=== PATIENT | male | born 1960 | race Caucasian/White ===

== ENCOUNTER 2016-05-10 19:58 | Emergency (ER) | payer OTHER ==
[~2016-05-10] VITALS: Ht 165.1 cm; Wt 97.5 kg
[~2016-05-10 19:58] MED LIST: CIPR500T4 PO; D-ME473S2 PO; DIPH1TAB PO; GABA300C16 PO; HYDR-902 PO; HYDR12.58 PO; LOSA50TA6 PO; METR500T PO; MONT10TA24 PO; PANT40TA4 PO; PRAV40TA76 PO; SYMB80120 INHALATION; VALS80TA2 PO
[2016-05-10 20:11] VITALS: Ht 165.1 cm; Wt 97.5 kg
--- NOTE | 2016-05-10 20:43 | ERD ---
ER Documentation Chief Complaint Date/Time DATE: 05/10/16 TIME: 20:41 Chief Complaint bilat eye redness and pain x 2 days HPI 55-year-old male presents here in emergency department for complaint of bilateral eye redness for 2 days, itching in both eyes. Patient is legally blind. Patient is unable to see in both eyes. Patient denies any foreign body sensation. Patient is complaining of itching in both eyes, burning pain, 4/10 scale. Patient also has been having cough for 1 week, runny nose nasal congestion. Patient does not cough up any phlegm or blood. Patient does not have any shortness breath or wheezing. ROS All systems reviewed and are negative except as per history of present illness. Medications Home Meds Active Scripts Diphenoxylate HCl/Atropine (Lomotil 2.5-0.025 mg Tablet) 1 Each Tablet, 1 TAB PO QID Y for DIARRHEA, #10 TAB Prov:REFUGIO SAAVEDRA. DO 01/26/16 Hydrocodone/Acetaminophen ([place] 10-325 Tablet) 1 Each Tablet, 1 TAB PO Q6H Y for PAIN, #20 TAB Prov:REFUGIO SAAVEDRA A. DO 01/26/16 Ciprofloxacin Hcl* (Ciprofloxacin Hcl*) 500 Mg Tablet, 500 MG PO BID for 10 Days , TAB Prov:JESSICA SAAVEDRASTDOMENICOS A. DO 01/26/16 Metronidazole* (Flagyl*) 500 Mg Tablet, 500 MG PO TID for 10 Days, TAB Prov:ZAIN SAAVEDRAS Jerry. DO 01/26/16 Reported Medications Budesonide-Formoterol Fumarate* (Symbicort*) 80-4.5 Inha, 2 PUFFS INHALATION BID , #1 EACH 01/26/16 Dextromethorphan Hb-Promethazine Hcl* (Promethazine DM* Syrup) 473 Ml Syrup, 5 ML PO Q6 Y for COUGH, ML 01/26/16 Montelukast Sodium* (Montelukast Sodium*) 10 Mg Tablet, 10 MG PO QHS, #30 TAB 01/26/16 Hydrochlorothiazide* (Hydrochlorothiazide*) 12.5 Mg Tablet, 12.5 MG PO DAILY, # 30 TAB 01/26/16 Losartan Potassium* (Losartan Potassium*) 50 Mg Tablet, 50 MG PO DAILY, TAB 01/26/16 Gabapentin* (Gabapentin*) 300 Mg Capsule, 300 MG PO DAILY, #60 CAP 01/26/16 Pravastatin Sodium* (Pravastatin Sodium*) 40 Mg Tablet, 40 MG PO HS, TAB 01/26/16 Pantoprazole* (Pantoprazole*) 40 Mg Tablet.dr, 40 MG PO DAILY, TAB 07/22/15 Valsartan* (Diovan*) 80 Mg Tablet, 80 MG PO DAILY 07/15/09 Allergies Allergies: Coded Allergies: Penicillins (Verified Allergy, Severe, 01/26/16) PMhx/Soc History of Surgery: Yes (CHOLECYSTECTOMKY, BILATERAL EAR SX) Anesthesia Reaction: No Hx Neurological Disorder: No (POOR EQUILIBRIUM/BALANCE) Hx Respiratory Disorders: No Hx Cardiac Disorders: Yes (HTN, HYPERLIPIDS) Hx Psychiatric Problems: No Hx Miscellaneous Medical Probl: Yes (BLIND FROM , DM) Hx Alcohol Use: No Hx Substance Use: No Hx Tobacco Use: No Smoking Status: Never smoker FmHx Family History: No coronary disease, No diabetes, No other Physical Exam Vitals Vital Signs Date Time Temp Pulse Resp B/P Pulse Ox O2 Delivery O2 Flow Rate FiO2 05/10/16 20:11 97.5 86 18 175/93 99 Physical Exam GENERAL: The patient is well developed and appropriate for usual state of health, in no apparent distress. HEENT: Atraumatic. Bilateral right conjunctiva noted to be erythematous with purulent discharge in both eyes. Ears: Normal tympanic membrane, no erythema or bulging. No ear canal swelling. No ear discharge. Nose: normal nasal turbinates , no erythema or swelling. Normal nasal discharge. Throat: oropharynx clear. No tonsillar swelling or tonsillar exudates. No lymphadenopathy. CHEST: Clear to auscultation bilaterally. There are no rales, wheezes or rhonchi. HEART: Regular rate and rhythm. No murmurs, clicks, rubs or gallops. No S3 or S4. ABDOMEN: Soft, nontender and nondistended. Good bowel sounds. No rebound or guarding. No gross peritonitis. No gross organomegaly or masses. No Payton sign or McBurney point tenderness. BACK: No midline or flank tenderness. EXTREMITIES: Equal pulses bilaterally. There is no peripheral clubbing, cyanosis or edema. No focal swelling or erythema. Full range of motion. Grossly neurovascularly intact. NEURO: Alert and oriented. Cranial nerves 2-12 intact. Motor strength in all 4 extremities with 5/5 strength. Sensation grossly intact. Normal speech and gait. SKIN: There is no apparent rash or petechia. The skin is warm and dry. HEMATOLOGIC AND LYMPHATIC: There is no evidence of excessive bruising or lymphedema. No gross cervical, axillary, or inguinal lymphadenopathy. Results 24 hrs PROCEDURE: XR Chest. CLINICAL INDICATION: Cough for 1 week. TECHNIQUE: Single frontal view of the chest was obtained COMPARISON: None FINDINGS: Heart size is mildly enlarged. The lungs are clear. There is no pleural effusion or pneumothorax. IMPRESSION: No acute disease. RPTAT: [facility] Physician Veronica Date Time Electronically viewed and signed by Physician Veronica on 05/10/2016 22:46 RS/ CC: JOSELINE GARCIA D[employer] SCREW [employer]SEMBLER Procedures/MDM Medical Decision Making: Patient symptoms are most likely consistent with acute bronchitis, which viral in origin. There is low suspicion for Pneumonia at this time since patients lungs sounds are clear, patient O2 saturation is normal and patient doesnt show any respiratory distress. Patients chest xray doesnt show infiltrates or any other cardiopulmonary emergencies at this time. There is low suspicion for other cardiopulmonary emergencies at this time such as CHF, Pulmonary Embolism, Pneumothorax, r any other cardiopulmonary emergencies at this time. There is low suspicion for sepsis. Patient appears well and is hemodynamically stable. Fever is controlled with medicines. Patient also has acute bacterial conjunctivitis, no symptoms of any other eye emergencies at this time. Disposition: Home. Condition: Stable Prescriptions: Polytrim eyedrops, guaifenesin DM Zyrtec ibuprofen albuterol Instructions: Patient is advised to take medications as prescribed. Patient is advised to rest. Patient advised to increase fluid intake, do humidifier at home and if possible, do salt water gargles. Patient is advised that if symptoms are worse, shortness of breath, uncontrolled fever, stridor, vomiting, worst signs and symptoms to return to emergency department immediately. Otherwise, patient is advised to follow up with primary doctor in 5-7 days. Departure Diagnosis: Primary Impression: Acute bronchitis Bronchitis organism: unspecified organism Qualified Code: J20.9 - Acute bronchitis, unspecified organism Additional Impression: Bacterial conjunctivitis of both eyes Condition: Stable Patient Instructions: Bronchitis, No Antibiotic (Adult), Conjunctivitis Caused by Infection Additional Instructions: Patient is advised to take medications as prescribed. Patient is advised to rest. Patient advised to increase fluid intake, do humidifier at home and if possible, do salt water gargles. Patient is advised that if symptoms are worse, shortness of breath, uncontrolled fever, stridor, vomiting, worst signs and symptoms to return to emergency department immediately. Otherwise, patient is advised to follow up with primary doctor in 5-7 days. JOSELINE GARCIA NP May 10, 2016 20:43
--- NOTE | 2016-05-10 22:46 | RADRPT ---
PROCEDURE: XR Chest. CLINICAL INDICATION: Cough for 1 week. TECHNIQUE: Single frontal view of the chest was obtained COMPARISON: None FINDINGS: Heart size is mildly enlarged. The lungs are clear. There is no pleural effusion or pneumothorax. IMPRESSION: No acute disease. RPTAT: [facility] Physician Veronica Date Time Electronically viewed and signed by Esteban Haley Physician on 05/10/2016 22:46 RS/
[2016-05-10] MEDS ORDERED: IBUP-1542 PO (23:01)
[2016-05-10] MEDS ORDERED: GUAI120S26 PO (23:01)
[2016-05-10] MEDS ORDERED: CETI10CA PO (23:01)
[2016-05-10] MEDS ORDERED: ALBU8.5H3 INH (23:01)
[2016-05-10] MEDS ORDERED: POLY10DR19 BOTH EYES (23:01)
[2016-05-10 23:05] VITALS: BP 165/90; PULSE 81; RESP 17; TEMP 98
== END 2016-05-10 23:14 | disposition home or self-care (01) ==
LOC: FTE 19:58
DX: J20.9 Acute bronchitis, unspecified (principal); H10.9 Unspecified conjunctivitis; I10 Essential (primary) hypertension; E11.9 Type 2 diabetes mellitus without complications
CPT/HCPCS: 71010; Z7502

== ENCOUNTER 2016-06-15 03:03 | Emergency (ER) | payer OTHER ==
[~2016-06-15] VITALS: Ht 165.1 cm; Wt 93.6 kg
[~2016-06-15 03:03] MED LIST changes: +ALBU8.5H3 INH; +CETI10CA PO; +GUAI120S26 PO; +IBUP-1542 PO; +POLY10DR19 BOTH EYES
[2016-06-15 03:13] VITALS: Ht 165.1 cm; Wt 93.6 kg
[2016-06-15] MEDS ORDERED: morphine 4 MG/ML VIAL IV STA (03:17)
[2016-06-15] MEDS ORDERED: SOD CHLORIDE 0.9% 1,000 ML IV STA (03:17)
[2016-06-15] MEDS ORDERED: ONDANSETRON 4 MG INJ IV STA (03:17)
[2016-06-15 04:28] LABS: ADD SCAN DIFF NO
--- NOTE | 2016-06-15 04:28 | RADRPT ---
PROCEDURE: CT ABDOMEN/PELVIS WITHOUT CONTRAST CLINICAL INDICATION: 55-year-old male with abdominal pain. TECHNIQUE: The study was performed utilizing a [employer] VCT 64-slice CT scanner. Direct axia l sections were obtained through the abdomen and pelvis without the use of intravenous contrast mate rial. Sagittal and coronal reformations were obtained. One or more of the following dose reduction t echniques were utilized: automated exposure control, adjustment of the mA and/or kV according to pat ient's size or use of iterative reconstruction technique. The images were reviewed on a [facility]. CTD/vol = 21.9 mGy; Total Exam DLP = 1353.6 mGy-cm. COMPARISON: CT abdomen/pelvis January 26, 2016. FINDINGS: The lung bases are unremarkable. There is no evidence for significant pleural effusion. The liver has a normal size and contour without focal areas of abnormal density. No intrahepatic nor extrahepa tic biliary ductal dilatation is seen. Surgical clips are present within the gallbladder fossa from prior cholecystectomy. The pancreas is without areas of abnormal attenuation. The spleen is identi fied and has a normal size without abnormal density. The adrenal glands are unremarkable. There is a right mid renal cortical cyst measuring approximately 2.0 x 2.2 x 2.3 cm. There is a punctate nonob structing left mid renal 2 x 2 mm calculus. There is no evidence for obstructive uropathy. The uri nary bladder contains a small volume of urine. The stomach is distended with air, fluid and particul ate material. There is mild fluid identified within the distal small bowel and colon without transit ion point. There are small diverticula identified within the descending and sigmoid colon without surrounding inflammatory changes. The appendix is retrocecal and is without abnormal thickening or s urrounding inflammatory reaction. There is no significant free fluid. The prostate is not enlarged however there are central calcifications within it. The aortoiliac vessels are without aneurysmal di latation. Degenerative changes are present within the spine. IMPRESSION: 1. Status post cholecystectomy. 2. Right renal cyst. 3. Punctate nonobstructing left mid renal calculus. 4. Distended stomach. A gastric outlet obstruction could have this appearance. 5. Mild fluid within the distal small bowel and throughout the colon suggestive of an enteritis wit hout obstruction. 6. No CT evidence for appendicitis. 7. Minimal sigmoid diverticulosis. 8. Degenerative changes within the spine. .Harris Contreras MD, Date Time Electronically viewed and signed by .Harris Contreras MD, on 06/15/2016 04:27 .Libby/
[2016-06-15 04:50] LABS: ADD UMIC YES; URINE BILIRUBIN (Dip) NEGATIVE (NEGATIVE); URINE BLOOD (Dip) TRACE (NEGATIVE); URINE COLOR LT. YELLOW (YELLOW); URINE GLUCOSE (Dip) NEGATIVE (NEGATIVE); URINE KETONES (Dip) NEGATIVE (NEGATIVE); URINE LEUKOCYTE ESTERASE (Dip) NEGATIVE (NEGATIVE); URINE NITRITE (Dip) NEGATIVE (NEGATIVE); URINE TOTAL PROTEIN (Dip) TRACE (NEGATIVE); URINE UROBILINOGEN (Dip) 0.2 E.U./dL (0.1-1.0)
[2016-06-15 04:52] LABS: BASOPHILS % 0.1 % (0.0-2.0); EOSINOPHILS # 0.2 10^3/ul (0.0-0.5); EOSINOPHILS % 2.7 % (0.0-7.0); HEMATOCRIT 41.9 % (42.0-52.0); HEMOGLOBIN 14.2 g/dl (14.0-18.0); LYMPHOCYTES # 0.8 10^3/ul (0.8-2.9); LYMPHOCYTES % 8.6 % (15.0-51.0); MEAN CORPUSCULAR HEMOGLOBIN 28.9 pg (29.0-33.0); MEAN CORPUSCULAR HGB CONC 33.9 g/dl (32.0-37.0); MEAN CORPUSCULAR VOLUME 85.2 fl (82.0-101.0); MONOCYTE # 0.9 10^3/ul (0.3-0.9); MONOCYTES % 10.2 % (0.0-11.0); NEUTROPHILS % 78.1 % (39.0-77.0); PLATELET COUNT 341 10^3/UL (140-415); RED BLOOD COUNT 4.92 10^6/ul (4.70-6.10); RED CELL DISTRIBUTION WIDTH 13.4 % (11.5-14.5)
[2016-06-15 04:57] LABS: ALBUMIN 4.6 g/dl (3.3-4.9); ALBUMIN/GLOBULIN RATIO 1.31; BILIRUBIN,INDIRECT 0.4 mg/dl (0-1.1); BILIRUBIN,TOTAL 0.4 mg/dl (0.2-1.3); CALCIUM 9.6 mg/dl (8.4-10.2); CREATININE 0.85 mg/dl (0.61-1.24); POTASSIUM 3.6 mmol/L (3.5-5.1); TOTAL PROTEIN 8.1 g/dl (6.1-8.1)
[2016-06-15 05:07] LABS: MUCUS,URINE FEW; SQUAMOUS EPITHELIAL CELL,UR RARE; URINE RBCS 0-2 /HPF ([, 0])
--- NOTE | 2016-06-15 05:38 | ERD ---
ER Documentation Chief Complaint Date/Time DATE: 06/15/16 TIME: 05:37 Chief Complaint BIBA from home, abd pain,diarrhea 5X,vomiting 2X started this afternoon HPI This is a 55-year-old male brought in by ambulance from home with abdominal pain diarrhea vomiting started this afternoon. He had 5 episodes of diarrhea which are nonbloody. 2 episodes of vomiting nonbilious nonbloody. No fevers no chills. No other current complaints. No sick contacts. ROS All systems reviewed and are negative except as per history of present illness. Medications Home Meds Active Scripts Ibuprofen* (Motrin*) 600 Mg Tab, 600 MG PO Q6H Y for PAIN AND OR ELEVATED TEMP, #30 TAB Prov:JOSELINE GARCIA NP 05/10/16 Albuterol Sulfate* (Proair HFA*) 8.5 Gm Hfa.aer.ad, 2 PUFF INH Q4H Y for WHEEZING AND SOB, #1 INHALER Prov:JOSELINE GARCIA NP 05/10/16 Polymyxin B Sulfate-TMP* (Polymyxin B-TMP Eye Drops*) 10 Ml Drops, 2 DROP BOTH EYES QID for 7 Days, EA Prov:JOSELINE GARCIA NP 05/10/16 Cetirizine Hcl* (Zyrtec*) 10 Mg Capsule, 10 MG PO DAILY, #30 TAB.CHEW Prov:JOSELINE GARCIA NP 05/10/16 Xqivluxwnsf-M-Sfqllcykpk Hb* (Guaifenesin* DM Syrup) 120 Ml Syrup, 10 ML PO Q4H Y for COUGH, #120 ML Prov:JOSELINE GARCIA NP 05/10/16 Diphenoxylate HCl/Atropine (Lomotil 2.5-0.025 mg Tablet) 1 Each Tablet, 1 TAB PO QID Y for DIARRHEA, #10 TAB Prov:REFUGIO SAAVEDRA DO 01/26/16 Hydrocodone/Acetaminophen ([place] 10-325 Tablet) 1 Each Tablet, 1 TAB PO Q6H Y for PAIN, #20 TAB Prov:REFUGIO SAAVEDRA DO 01/26/16 Ciprofloxacin Hcl* (Ciprofloxacin Hcl*) 500 Mg Tablet, 500 MG PO BID for 10 Days , TAB Prov:REFUGIO SAAVEDRARafi DO 01/26/16 Metronidazole* (Flagyl*) 500 Mg Tablet, 500 MG PO TID for 10 Days, TAB Prov:PANFILO SAAVEDRADOMENICODavy EdwardsRafi DO 01/26/16 Reported Medications Budesonide-Formoterol Fumarate* (Symbicort*) 80-4.5 Inha, 2 PUFFS INHALATION BID , #1 EACH 01/26/16 Dextromethorphan Hb-Promethazine Hcl* (Promethazine DM* Syrup) 473 Ml Syrup, 5 ML PO Q6 Y for COUGH, ML 01/26/16 Montelukast Sodium* (Montelukast Sodium*) 10 Mg Tablet, 10 MG PO QHS, #30 TAB 01/26/16 Hydrochlorothiazide* (Hydrochlorothiazide*) 12.5 Mg Tablet, 12.5 MG PO DAILY, # 30 TAB 01/26/16 Losartan Potassium* (Losartan Potassium*) 50 Mg Tablet, 50 MG PO DAILY, TAB 01/26/16 Gabapentin* (Gabapentin*) 300 Mg Capsule, 300 MG PO DAILY, #60 CAP 01/26/16 Pravastatin Sodium* (Pravastatin Sodium*) 40 Mg Tablet, 40 MG PO HS, TAB 01/26/16 Pantoprazole* (Pantoprazole*) 40 Mg Tablet.dr, 40 MG PO DAILY, TAB 07/22/15 Valsartan* (Diovan*) 80 Mg Tablet, 80 MG PO DAILY 07/15/09 Allergies Allergies: Coded Allergies: Penicillins (Verified Allergy, Severe, 01/26/16) PMhx/Soc History of Surgery: Yes (CHOLECYSTECTOMKY, BILATERAL EAR SX) Anesthesia Reaction: No Hx Neurological Disorder: No (POOR EQUILIBRIUM/BALANCE) Hx Respiratory Disorders: No Hx Cardiac Disorders: Yes (HTN, HYPERLIPIDS) Hx Psychiatric Problems: No Hx Miscellaneous Medical Probl: Yes (BLIND FROM , DM) Hx Alcohol Use: No Hx Substance Use: No Hx Tobacco Use: No Smoking Status: Never smoker Physical Exam Vitals Vital Signs Date Time Temp Pulse Resp B/P Pulse Ox O2 Delivery O2 Flow Rate FiO2 06/15/16 03:13 99.3 103 16 142/90 99 Physical Exam Const: [] Head: Atraumatic Eyes: Normal Conjunctiva ENT: Normal External Ears, Nose and Mouth. Neck: Full range of motion..~ No meningismus. Resp: Clear to auscultation bilaterally Cardio: Regular rate and rhythm, no murmurs Abd: Soft, non tender, non distended. Normal bowel sounds Skin: No petechiae or rashes Back: No midline or flank tenderness Ext: No cyanosis, or edema Neur: Awake and alert Psych: Normal Mood and Affect Result Diagram: 06/15/16 0352 06/15/16 0352 Results 24 hrs Laboratory Tests Test 06/15/16 03:38 06/15/16 03:52 Urine Color LT. YELLOW Urine Clarity CLEAR Urine pH 5.5 Urine Specific [place] 1.025 Urine Ketones NEGATIVE Urine Nitrite NEGATIVE Urine Bilirubin NEGATIVE Urine Urobilinogen 0.2 E.U./dL Urine Leukocyte Esterase NEGATIVE Urine Microscopic RBC 0-2/HPF Urine Microscopic WBC 0-2/HPF Urine Squamous Epithelial Cells RARE Urine Mucus FEW Urine Hemoglobin TRACE Urine Glucose NEGATIVE% Urine Total Protein TRACE White Blood Count 9.010^3/ul Red Blood Count 4.9210^6/ul Hemoglobin 14.2g/dl Hematocrit 41.9% Mean Corpuscular Volume 85.2fl Mean Corpuscular Hemoglobin 28.9pg Mean Corpuscular Hemoglobin Concent 33.9g/dl Red Cell Distribution Width 13.4% Platelet Count 79127^3/UL Mean Platelet Volume 9.0fl Neutrophils % 78.1% Lymphocytes % 8.6% Monocytes % 10.2% Eosinophils % 2.7% Basophils % 0.1% Nucleated Red Blood Cells % 0.0/100WBC Neutrophils # 7.010^3/ul Lymphocytes # 0.810^3/ul Monocytes # 0.910^3/ul Eosinophils # 0.210^3/ul Basophils # 0.010^3/ul Nucleated Red Blood Cells # 0.010^3/ul Sodium Level 143mmol/L Potassium Level 3.6mmol/L Chloride Level 106mmol/L Carbon Dioxide Level 27mmol/L Anion Gap 14 Blood Urea Nitrogen 16mg/dl Creatinine 0.85mg/dl Glucose Level 116mg/dl Calcium Level 9.6mg/dl Total Bilirubin 0.4mg/dl Direct Bilirubin 0.00mg/dl Indirect Bilirubin 0.4mg/dl Aspartate Amino Transf (AST/SGOT) 60IU/L Alanine Aminotransferase (ALT/SGPT) 73IU/L Alkaline Phosphatase 110IU/L Total Protein 8.1g/dl Albumin 4.6g/dl Globulin 3.50g/dl Albumin/Globulin Ratio 1.31 Lipase 44U/L Current Medications Medications (Trade) Dose Ordered Sig/Shikha Route PRN Reason Start Time Stop Time Status Last Admin Dose Admin Sodium Chloride (NS) 1,000 ml @ 1,000 mls/hr Q1H STAT IV 06/15/16 03:17 06/15/16 04:16 DC 06/15/16 03:47 Morphine Sulfate (morphine) 4 mg ONCE STAT IV 06/15/16 03:17 06/15/16 03:18 DC 06/15/16 03:47 Ondansetron HCl (Zofran Inj) 4 mg ONCE STAT IV 06/15/16 03:17 06/15/16 03:18 DC 06/15/16 03:47 Procedures/MDM Medical decision-making: This is a 55-year-old male with gastroenteritis, likely bacterial. At this point clinically stable for outpatient management. Discharged home with antibiotics and Zofran. Follow-up with primary care physician. Return in 8 hours for serial abdominal exams Departure Diagnosis: Primary Impression: Abdominal pain Abdominal location: generalized Qualified Code: R10.84 - Generalized abdominal pain Condition: Stable JARRET MARTINEZ June 15, 2016 05:38
[2016-06-15] MEDS ORDERED: HYDROmorphONE 1 MG/ML SYG IV STA (05:40)
[2016-06-15] MEDS ORDERED: METR500T PO (05:41)
[2016-06-15] MEDS ORDERED: CIPR500T4 PO (05:41)
[2016-06-15] MEDS ORDERED: ONDA4TAB14 PO (05:41)
[2016-06-15] MEDS ORDERED: HYDR-902 PO (05:41)
[2016-06-15 05:45] VITALS: BP 132/80; PULSE 95; RESP 18; TEMP 98.6
== END 2016-06-15 06:02 | disposition home or self-care (01) ==
LOC: E/R 03:03
DX: R10.84 Generalized abdominal pain (principal); R11.10 Vomiting, unspecified; I10 Essential (primary) hypertension; E11.9 Type 2 diabetes mellitus without complications
CPT/HCPCS: 36415; 74176; 80053; 81001; 83690; 85025; 96374; 96375; J1170; J2270; J2405; J7030; Z7502; 81003

== ENCOUNTER 2016-09-23 13:23 | Emergency (ER) | END 2016-09-23 15:33 | disposition home or self-care (01) | DX: I10 Essential (primary) hypertension (principal); E11.9 Type 2 diabetes mellitus without complications | CPT/HCPCS: 81003; 93005; Z7502; Z7610 ==

== ENCOUNTER 2017-01-04 14:00 | Emergency (ER) | payer OTHER ==
[~2017-01-04] VITALS: Ht 165.1 cm; Wt 94.0 kg
[~2017-01-04 14:00] MED LIST changes: +ONDA4TAB14 PO
[2017-01-04 14:01] VITALS: Ht 165.1 cm; Wt 94.0 kg
[2017-01-04] MEDS ORDERED: ONDANSETRON 4 MG INJ IV STA (16:59)
[2017-01-04] MEDS ORDERED: SOD CHLORIDE 0.9% 1,000 ML IV STA (16:59)
[2017-01-04] MEDS ORDERED: HYDROmorphONE 1 MG/ML SYG IV STA (16:59)
[2017-01-04 17:34] LABS: BASOPHIL # 0.1 10^3/ul (0.0-0.1); BASOPHILS % 0.7 % (0.0-2.0); EOSINOPHILS # 0.4 10^3/ul (0.0-0.5); HEMATOCRIT 43.8 % (42.0-52.0); HEMOGLOBIN 14.9 g/dl (14.0-18.0); LYMPHOCYTES # 2.5 10^3/ul (0.8-2.9); LYMPHOCYTES % 24.3 % (15.0-51.0); MEAN CORPUSCULAR HEMOGLOBIN 28.8 pg (29.0-33.0); MEAN CORPUSCULAR VOLUME 84.7 fl (82.0-101.0); MEAN PLATELET VOLUME 9.3 fl (7.4-10.4); MONOCYTE # 0.9 10^3/ul (0.3-0.9); MONOCYTES % 8.5 % (0.0-11.0); NEUTROPHIL # 6.3 10^3/ul (1.6-7.5); PLATELET COUNT 396 10^3/UL (140-415); RED BLOOD COUNT 5.17 10^6/ul (4.70-6.10); RED CELL DISTRIBUTION WIDTH 13.6 % (11.5-14.5); WHITE BLOOD COUNT 10.2 10^3/ul (4.8-10.8)
[2017-01-04 17:52] LABS: ALBUMIN 5.2 g/dl (3.3-4.9); ALBUMIN/GLOBULIN RATIO 1.67; BILIRUBIN,INDIRECT 0.5 mg/dl (0-1.1); BILIRUBIN,TOTAL 0.5 mg/dl (0.2-1.3); CALCIUM 10.4 mg/dl (8.4-10.2); CREATININE 0.96 mg/dl (0.61-1.24); POTASSIUM 4.3 mmol/L (3.5-5.1); TOTAL PROTEIN 8.3 g/dl (6.1-8.1)
[2017-01-04] MEDS ORDERED: IODIXANOL LOCM 100 ML BTL ONE (18:01)
[2017-01-04] MEDS ORDERED: SOD CHLORIDE 0.9% 100 ML ONE (18:01)
--- NOTE | 2017-01-04 18:26 | ERD ---
ER Documentation Chief Complaint Chief Complaint abdominal pain and rectal pain x4 days HPI This is a 56-year-old male who states that he is having off and on bowel incontinence for the past 10 days. He states that he will be sitting there doing nothing then suddenly he has a pampers full of stool. He says he does not feel himself having a bowel movement. He also states he is having off-and- on diffuse abdominal pain located in the entire abdomen but says it is worse in the epigastric and right lower quadrant. Pain is constant but has worsening episodes described as crampy and sometimes sharp. No vomiting. Denies any low back pain says sometimes he has rectal pain the same time as the abdominal pain but is inconsistent ROS All systems reviewed and are negative except as per history of present illness. Medications Home Meds Active Scripts Hydrocodone/Acetaminophen ([place] 5-325 Tablet) 1 Each Tablet, 1 TAB PO Q6H Y for PAIN, #7 TAB Prov:REFUGIO SAAVEDRA DO 01/04/17 Polyethylene Glycol* (Miralax*) 17 Gm Powd.pack, 17 GM PO DAILY, #7 Prov:REFUGIO SAAVEDRA. DO 01/04/17 Losartan Potassium* (Losartan Potassium*) 50 Mg Tablet, 50 MG PO DAILY, #20 TAB Prov:GRACE MILLER PA-C 09/23/16 Ibuprofen* (Motrin*) 600 Mg Tab, 600 MG PO Q6H Y for PAIN AND OR ELEVATED TEMP, #30 TAB Prov:JOSELINE GARCIA PET FEEDER 05/10/16 Reported Medications Budesonide-Formoterol Fumarate* (Symbicort*) 80-4.5 Inha, 2 PUFFS INHALATION BID , #1 EACH 01/26/16 Montelukast Sodium* (Montelukast Sodium*) 10 Mg Tablet, 10 MG PO QHS, #30 TAB 01/26/16 Gabapentin* (Gabapentin*) 300 Mg Capsule, 300 MG PO DAILY, #60 CAP 01/26/16 Pravastatin Sodium* (Pravastatin Sodium*) 40 Mg Tablet, 40 MG PO HS, TAB 01/26/16 Pantoprazole* (Pantoprazole*) 40 Mg Tablet.dr, 40 MG PO DAILY, TAB 07/22/15 Discontinued Reported Medications Dextromethorphan Hb-Promethazine Hcl* (Promethazine DM* Syrup) 473 Ml Syrup, 5 ML PO Q6 Y for COUGH, ML 01/26/16 Hydrochlorothiazide* (Hydrochlorothiazide*) 12.5 Mg Tablet, 12.5 MG PO DAILY, # 30 TAB 01/26/16 Losartan Potassium* (Losartan Potassium*) 50 Mg Tablet, 50 MG PO DAILY, TAB 01/26/16 Valsartan* (Diovan*) 80 Mg Tablet, 80 MG PO DAILY 07/15/09 Discontinued Scripts Ondansetron (Ondansetron Odt) 4 Mg Tab.rapdis, 4 MG PO Q6H Y for NAUSEA AND/OR VOMITING, #10 TAB Prov:JARRET MARTINEZ S. 06/15/16 Hydrocodone/Acetaminophen ([place] 10-325 Tablet) 1 Each Tablet, 1 TAB PO Q6H Y for PAIN, #20 TAB Prov:JARRET MARTINEZ S. 06/15/16 Metronidazole* (Flagyl*) 500 Mg Tablet, 500 MG PO TID for 7 Days, TAB Prov:JARRET MARTINEZ S. 06/15/16 Ciprofloxacin Hcl* (Ciprofloxacin Hcl*) 500 Mg Tablet, 500 MG PO BID for 7 Days , TAB Prov:JARRET MARTINEZ S. 06/15/16 Albuterol Sulfate* (Proair HFA*) 8.5 Gm Hfa.aer.ad, 2 PUFF INH Q4H Y for WHEEZING AND SOB, #1 INHALER Prov:JOSELINE GARCIA NP 05/10/16 Polymyxin B Sulfate-TMP* (Polymyxin B-TMP Eye Drops*) 10 Ml Drops, 2 DROP BOTH EYES QID for 7 Days, EA Prov:JOSELINE GARCIA NP 05/10/16 Cetirizine Hcl* (Zyrtec*) 10 Mg Capsule, 10 MG PO DAILY, #30 TAB.CHEW Prov:JOSELINE GARCIA NP 05/10/16 Jiqqpgiloqi-Q-Hkdxuqiuqp Hb* (Guaifenesin* DM Syrup) 120 Ml Syrup, 10 ML PO Q4H Y for COUGH, #120 ML Prov:JOSELINE GARCIA NP 05/10/16 Diphenoxylate HCl/Atropine (Lomotil 2.5-0.025 mg Tablet) 1 Each Tablet, 1 TAB PO QID Y for DIARRHEA, #10 TAB Prov:REFUGIO SAAVEDRA. DO 01/26/16 Hydrocodone/Acetaminophen ([place] 10-325 Tablet) 1 Each Tablet, 1 TAB PO Q6H Y for PAIN, #20 TAB Prov:REFUGIO SAAVEDRA. DO 01/26/16 Ciprofloxacin Hcl* (Ciprofloxacin Hcl*) 500 Mg Tablet, 500 MG PO BID for 10 Days , TAB Prov:REFUGIO SAAVEDRA. DO 01/26/16 Metronidazole* (Flagyl*) 500 Mg Tablet, 500 MG PO TID for 10 Days, TAB Prov:REFUGIO SAAVEDRA. DO 01/26/16 PMhx/Soc History of Surgery: Yes (CHOLECYSTECTOMY, BILATERAL EAR SX) Anesthesia Reaction: No Hx Neurological Disorder: No (POOR EQUILIBRIUM/BALANCE, BLIND) Hx Respiratory Disorders: No Hx Cardiac Disorders: Yes (HTN, HYPERLIPIDS) Hx Psychiatric Problems: No Hx Miscellaneous Medical Probl: Yes (BLIND FROM , DM) Hx Alcohol Use: No Hx Substance Use: No Hx Tobacco Use: No Smoking Status: Never smoker FmHx Family History: No coronary disease Physical Exam Vitals Vital Signs Date Time Temp Pulse Resp B/P Pulse Ox O2 Delivery O2 Flow Rate FiO2 01/04/17 20:53 69 17 111/76 98 Room Air 01/04/17 20:00 80 17 126/73 100 Room Air 01/04/17 17:01 97.6 85 18 137/86 99 Room Air 01/04/17 14:01 97.6 70 18 137/86 99 Physical Exam Const: Well-developed, well-nourished Head: Atraumatic, normocephalic Eyes: Normal Conjunctiva, PERRLA, EOMI, normal sclera, no nystagmus ENT: Normal External Ears, Nose and Mouth, moist mucus membranes. Neck: Full range of motion. No meningismus, no lymphadenopathy. Resp: Clear to auscultation bilaterally, no wheezing, rhonchi, rales Cardio: Regular rate and rhythm, no murmurs, S1 S2 present Abd: Soft, tenderness in the epigastric and right lower quadrant region mild to moderate, non distended. Normal bowel sounds, no guarding or rebound, no pulsitile abdominal masses or bruits, he has good rectal sensation no saddle anesthesia and good rectal tone Skin: No petechiae or rashes, no ecchymosis , no maculopapular rash Back: No midline or flank tenderness Ext: No cyanosis, or edema, FROM x 4, normal inspection, neurovascularly intact x 4 Neur: Awake and alert, STR 5/5 x 4, sensation intact x 4, no focal findings, cerebellum intact Psych: Normal Mood and Affect Result Diagram: 01/04/17169901/04/17 170 Results 24 hrs Laboratory Tests Test 01/04/17 17:00 White Blood Count 10.210^3/ul Red Blood Count 5.1710^6/ul Hemoglobin 14.9g/dl Hematocrit 43.8% Mean Corpuscular Volume 84.7fl Mean Corpuscular Hemoglobin 28.8pg Mean Corpuscular Hemoglobin Concent 34.0g/dl Red Cell Distribution Width 13.6% Platelet Count 31989^3/UL Mean Platelet Volume 9.3fl Neutrophils % 62.0% Lymphocytes % 24.3% Monocytes % 8.5% Eosinophils % 4.0% Basophils % 0.7% Nucleated Red Blood Cells % 0.0/100WBC Neutrophils # 6.310^3/ul Lymphocytes # 2.510^3/ul Monocytes # 0.910^3/ul Eosinophils # 0.410^3/ul Basophils # 0.110^3/ul Nucleated Red Blood Cells # 0.010^3/ul Sodium Level 141mmol/L Potassium Level 4.3mmol/L Chloride Level 95mmol/L Carbon Dioxide Level 30mmol/L Anion Gap 20 Blood Urea Nitrogen 17mg/dl Creatinine 0.96mg/dl Glucose Level 131mg/dl Calcium Level 10.4mg/dl Total Bilirubin 0.5mg/dl Direct Bilirubin 0.00mg/dl Indirect Bilirubin 0.5mg/dl Aspartate Amino Transf (AST/SGOT) 46IU/L Alanine Aminotransferase (ALT/SGPT) 65IU/L Alkaline Phosphatase 123IU/L Total Protein 8.3g/dl Albumin 5.2g/dl Globulin 3.10g/dl Albumin/Globulin Ratio 1.67 Lipase 74U/L Current Medications Medications (Trade) Dose Ordered Sig/Shikha Route PRN Reason Start Time Stop Time Status Last Admin Dose Admin Sodium Chloride (NS) 1,000 ml @ 1,000 mls/hr Q1H STAT IV 01/04/17 16:59 01/04/17 17:58 DC 01/04/17 17:38 Hydromorphone HCl (Dilaudid) 1 mg ONCE STAT IV 01/04/17 16:59 01/04/17 17:00 DC 01/04/17 17:38 Ondansetron HCl (Zofran Inj) 4 mg ONCE STAT IV 01/04/17 16:59 01/04/17 17:00 DC 01/04/17 17:38 IV Flush 10 ml 10 ml STK-MED ONCE .ROUTE 01/04/17 18:01 01/04/17 18:02 DC Sodium Chloride (NS) 100 ml @ ud STK-MED ONCE .ROUTE 01/04/17 18:01 01/04/17 18:02 DC Iodixanol (Visipaque Locm) 100 ml STK-MED ONCE .ROUTE 01/04/17 18:01 01/04/17 18:02 DC Procedures/MDM PROCEDURE: MRI Lumbar Spine without contrast CLINICAL INDICATION: Stool. TECHNIQUE: MRI examination of the lumbar spine was performed on a high field MRI system. Sagittal T1, T2, T2 fat suppression, axial proton density T2- weighted images were produced. Dye, images are available. COMPARISON: None. FINDINGS: There is maintenance of height of the vertebral bodies. Alignment is maintained. There are anterior osteophytes largest at L3-4 with associated anterior superior L4 vertebral body endplate reactive changes or edema. There is a small lipoma in the L2 vertebral body. Bone marrow signal intensity is otherwise within normal limits. Inferior aspect of the conus. There is congenital spinal stenosis throughout the lumbar spine. medullaris is at T12- L1. T 12-L1: Mild disc desiccation. Mild right posterior and bilateral disc bulge. Mild bilateral facet hypertrophy.. Mild central canal and bilateral neural foraminal stenosis, right greater than left. L 1-2: There is disc desiccation. There is a posterior disc bulge with a right posterior parasagittal 4 mm disc protrusion. There is moderate bilateral facet and ligamentum flavum hypertrophy. Small amount of fluid within the facet joints. Overall there is moderately severe central canal stenosis. Moderate bilateral neural foraminal stenosis. The descending nerve roots arise from the conus medularis have a wavy/bulckled appearance consistent with high-grade stenosis at L1-2. L 2-3: There is moderate broad posterior disc bulge. There is severe bilateral facet and ligamentum flavum hypertrophy. Moderate severe central canal stenosis. There is mild to moderate bilateral neural foraminal stenosis. L 3-4: Broad posterior disc bulge. There is severe bilateral facet and ligament flavum hypertrophy. There is severe central canal stenosis. There is mild bilateral neural foraminal stenosis. L 4-5: Large posterior disc bulge with a left posterior parasagittal 3 mm protrusion. There is severe bilateral facet and ligament flavum hypertrophy. There is severe central canal stenosis. There is moderate bilateral neural foraminal stenosis. L5-S1: There is mild diffuse posterior disc bulge. Moderate bilateral facet hypertrophy. Mild central canal stenosis. Moderate bilateral neural foraminal stenosis. IMPRESSION: 1. Underlying congenital spinal stenosis. 2. Multilevel significant central canal stenosis including L1-2 with moderate severe stenosis and severe central canal stenosis at L3-4 and L4-5. 3. No spondylolisthesis or evidence for a fracture. 4. Incidental lipoma L2 vertebral body. 5. Anterior osteophytes greatest at L3-4. RPTAT: HMVK .Carrington Alvarenga MD, Date Time Electronically viewed and signed by .Carrington Alvarenga MD, on 01/04/2017 21:19 .K/ MAGGY: REFUGIO SAAVEDRA DO PROCEDURE: CT abdomen and pelvis with contrast. CLINICAL INDICATION: Pain TECHNIQUE: CT scan of the abdomen and pelvis without oral contrast was performed and is reconstructed at the 2.5 mm contiguous axial intervals from the dome of the diaphragm to the inferior pubic rami.. The patient was scanned with intravenous contrast. Sagittal and coronal reformatted images were obtained from the axial source images. The calculated radiation dose measures 1281 mGy centimeters. The CTDI measures 22 mGy. Individualized dose optimization technique was used for the performance of this exam. This included 1. Automated exposure control. 2. Adjustment of the mA and / or kV according to the patient's size. 3. Use of iterative reconstructed technique. COMPARISON: CT abdomen pelvis June 15, 2016 FINDINGS: The lung bases are clear of any infiltrate or nodule. No effusion is seen. The liver is of normal size, contour and attenuation with no mass or ductal dilatation. Gallbladder has been removed. No splenic, adrenal or pancreatic abnormalities present. Kidneys are of normal size and contour. No hydronephrosis, calculus or solid masses seen. There is a 2 cm parenchymal cyst of the right kidney. Ureters are of normal course and caliber with no stone. No bladder mass or stone is present. Prostate and seminal vesicles are normal. There is no aneurysm. No adenopathy is present. No bowel mass or obstruction is present. There is diverticulosis. The appendix is normal. No phlegmon, ascites or pneumoperitoneum is visualized. Senescent spondylosis as present in the lumbar spine with multilevel central stenosis. IMPRESSION: No evidence of urolithiasis, obstructive uropathy, diverticulitis or appendicitis. Diverticulosis. Post cholecystectomy. Right renal cyst. Multilevel lumbar central stenosis. .Mark Castillo MD, MD Date Time Electronically viewed and signed by .Mark Castillo MD, MD on 01/04/2017 18: 31 .A/ CC: REFUGIO SAAVEDRA DO Patient has no evidence of cauda equina there is no loss of rectal tone or saddle anesthesia. I feel after speaking to him more he states that he has got loss of bowel function when he is walking and not at rest. He is likely having some obstipation he says the stools can have a watery stool but he is having constipation on top of that. I told him he needs to follow-up with neurosurgery and I gave him a copy of his back MRI scan Departure Diagnosis: Primary Impression: Obstipation Additional Impressions: Abdominal pain Abdominal location: generalized Qualified Code: R10.84 - Generalized abdominal pain Constipation Constipation type: unspecified constipation type Qualified Code: K59.00 - Constipation, unspecified constipation type Condition: Stable REFUGIO SAAVEDRA A. DO Jan 04, 2017 18:26
--- NOTE | 2017-01-04 18:32 | RADRPT ---
PROCEDURE: CT abdomen and pelvis with contrast. CLINICAL INDICATION: Pain TECHNIQUE: CT scan of the abdomen and pelvis without oral contrast was performed and is reconstruc terry at the 2.5 mm contiguous axial intervals from the dome of the diaphragm to the inferior pubic ra mi.. The patient was scanned with intravenous contrast. Sagittal and coronal reformatted images we re obtained from the axial source images. The calculated radiation dose measures 1281 mGy centimeter s. The CTDI measures 22 mGy. Individualized dose optimization technique was used for the performance of this exam. This included 1. Automated exposure control. 2. Adjustment of the mA and / or kV according to the patient's size. 3. Use of iterative reconstructed technique. COMPARISON: CT abdomen pelvis June 15, 2016 FINDINGS: The lung bases are clear of any infiltrate or nodule. No effusion is seen. The liver is of normal size, contour and attenuation with no mass or ductal dilatation. Gallbladder has been removed. No splenic, adrenal or pancreatic abnormalities present. Kidneys are of normal size and contour. No hydronephrosis, calculus or solid masses seen. There is a 2 cm parenchymal cyst of the right kidney. Ureters are of normal course and caliber with no stone . No bladder mass or stone is present. Prostate and seminal vesicles are normal. There is no aneurysm. No adenopathy is present. No bowel mass or obstruction is present. There is diverticulosis. The appendix is normal. No phl egmon, ascites or pneumoperitoneum is visualized. Senescent spondylosis as present in the lumbar spine with multilevel central stenosis. IMPRESSION: No evidence of urolithiasis, obstructive uropathy, diverticulitis or appendicitis. Diverticulosis. Post cholecystectomy. Right renal cyst. Multilevel lumbar central stenosis. .Mark Castillo MD, MD Date Time Electronically viewed and signed by .Mark Castillo MD, MD on 01/04/2017 18:31 .A/
--- NOTE | 2017-01-04 19:55 | RADRPT ---
PROCEDURE: XR Skull. CLINICAL INDICATION: Headache. Screening for MRI. The patient may have a cochlear implant. TECHNIQUE: 2 views. Frontal and left lateral. COMPARISON: No prior studies available for comparison. FINDINGS: There is no skull fracture. There is no lytic or blastic lesion. The visualized portions of the orbits and paranasal sinuses are normal. There is no radiopaque foreign body. IMPRESSION: 1. Normal images of the skull. 2. No radiopaque foreign body. RPTAT: QQ .Nehemiah Pendleton MD, MD Date Time Electronically viewed and signed by .Nehemiah Pendleton MD, MD on 01/04/2017 19:55 .R/
--- NOTE | 2017-01-04 21:19 | RADRPT ---
PROCEDURE: MRI Lumbar Spine without contrast CLINICAL INDICATION: Stool. TECHNIQUE: MRI examination of the lumbar spine was performed on a high field MRI system. Sagittal T1, T2, T2 fat suppression, axial proton density T2-weighted images were produced. Dye, images are available. COMPARISON: None. FINDINGS: There is maintenance of height of the vertebral bodies. Alignment is maintained. There are anterior osteophytes largest at L3-4 with associated anterior superior L4 vertebral body endplate reactive c hanges or edema. There is a small lipoma in the L2 vertebral body. Bone marrow signal intensity is o therwise within normal limits. Inferior aspect of the conus. There is congenital spinal stenosis throughout the lumbar spine. medullaris is at T12-L1. T 12-L1: Mild disc desiccation. Mild right posterior and bilateral disc bulge. Mild bilateral facet hypertrophy.. Mild central canal and bilateral neural foraminal stenosis, right greater than left. L 1-2: There is disc desiccation. There is a posterior disc bulge with a right posterior parasagit erlinda 4 mm disc protrusion. There is moderate bilateral facet and ligamentum flavum hypertrophy. Small amount of fluid within the facet joints. Overall there is moderately severe central canal stenosis. Moderate bilateral neural foraminal stenosis. The descending nerve roots arise from the conus medul abdullahi have a wavy/bulckled appearance consistent with high-grade stenosis at L1-2. L 2-3: There is moderate broad posterior disc bulge. There is severe bilateral facet and ligamentum flavum hypertrophy. Moderate severe central canal stenosis. There is mild to moderate bilateral pacheco ral foraminal stenosis. L 3-4: Broad posterior disc bulge. There is severe bilateral facet and ligament flavum hypertrophy. There is severe central canal stenosis. There is mild bilateral neural foraminal stenosis. L 4-5: Large posterior disc bulge with a left posterior parasagittal 3 mm protrusion. There is yolanda re bilateral facet and ligament flavum hypertrophy. There is severe central canal stenosis. There is moderate bilateral neural foraminal stenosis. L5-S1: There is mild diffuse posterior disc bulge. Moderate bilateral facet hypertrophy. Mild centra l canal stenosis. Moderate bilateral neural foraminal stenosis. IMPRESSION: 1. Underlying congenital spinal stenosis. 2. Multilevel significant central canal stenosis including L1-2 with moderate severe stenosis and s evere central canal stenosis at L3-4 and L4-5. 3. No spondylolisthesis or evidence for a fracture. 4. Incidental lipoma L2 vertebral body. 5. Anterior osteophytes greatest at L3-4. RPTAT: HMVK .Carrington Alvarenga MD, MD Date Time Electronically viewed and signed by .Carrington Alvarenga MD, on 01/04/2017 21:19 .K/
[2017-01-04] MEDS ORDERED: POLY17PO6 PO (23:41)
[2017-01-04] MEDS ORDERED: HYDR-906 PO (23:41)
[2017-01-05 00:19] VITALS: BP 128/85; PULSE 60; RESP 18; TEMP 98.6
== END 2017-01-05 00:30 | disposition home or self-care (01) ==
LOC: E/R 14:00
DX: K59.00 Constipation, unspecified (principal); I10 Essential (primary) hypertension; E11.9 Type 2 diabetes mellitus without complications
CPT/HCPCS: 36415; 70250; 72148; 74177; 80053; 83690; 85025; 96374; 96375; J1170; J2405; J7030; Q9967; Z7502; Z7610

== ENCOUNTER 2017-05-13 11:04 | Emergency (ER) | END 2017-05-13 14:48 | disposition home or self-care (01) ==

== ENCOUNTER 2017-08-25 14:43 | Observation (INO) | END 2017-08-26 17:55 | disposition home or self-care (01) ==

== ENCOUNTER 2018-01-12 13:54 | Emergency (ER) | END 2018-01-12 19:06 | disposition home or self-care (01) ==